=== PATIENT | female | born 1960 | race Hispanic/Latino ===

== ENCOUNTER → 2023-02-04 | Outpatient (CLI) | payer OTHER ==
[2023-02-04 13:22] LABS: ALBUMIN 3.3 g/dL (3.5-5.0); BILIRUBIN,TOTAL 0.3 mg/dL (0.2-1.0); POTASSIUM 4.2 mmol/L (3.5-5.1); TOTAL PROTEIN, SERUM 8.1 g/dL (6.0-8.3)
== END | disposition home or self-care (01) ==
LOC: LAB 12:14
PROVIDERS: ATTEND Internal Medicine Cardiovascular Disease
DX: R07.9 Chest pain, unspecified (principal)
CPT/HCPCS: 36415; 80053

== ENCOUNTER → 2023-02-26 | Outpatient (CLI) | payer OTHER ==
[~2023-02-26] MED LIST: IOHEXOL 350 MG/ML 100ML INFUS..BTL IV ONE; METOPROLOL TARTRATE 1 MG/ML 5ML VIAL IV ONE
== END | disposition home or self-care (01) ==
LOC: RAH 10:43
PROVIDERS: ATTEND Internal Medicine Cardiovascular Disease
DX: R07.9 Chest pain, unspecified (principal); R00.2 Palpitations
CPT/HCPCS: 75574; Q9967; J3490

== ENCOUNTER 2024-07-10 14:03 | Emergency (ER) | payer BC, OTHER ==
[~2024-07-10] VITALS: Ht 160 cm; Wt 83.5 kg
--- NOTE | 2024-07-10 14:47 | EKG ---
[facility] Test Date: 2024-07-10 Test Time: 14:45:54 Pat Name: BENIGNO YEAGER Department: 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
--- NOTE | 2024-07-10 14:53 | HMCIMG ---
LEFT SHOULDER RADIOGRAPHS - 2-3 VIEWS INDICATION: Pain COMPARISON: None FINDINGS: No evidence for acute fracture or dislocation. Acromioclavicular and glenohumeral alignments are well maintained. Visible portions of the left clavicle are intact. Chronic subcentimeter calcification near the tip of the acromion. IMPRESSION: No evidence for fracture or dislocation.
[2024-07-10 15:02] VITALS: BP 152/91; PULSE 72; RESP 16; TEMP 98.3; O2SAT 98
--- NOTE | 2024-07-10 15:07 | ERN ---
General Chief Complaint: Upper Extremity Pain/Injury Stated Complaint: ARM PAIN Time Seen by MD: 14:05 Source: patient History of Present Illness Initial Comments In his is a 63-year-old female coming in to be evaluated for left shoulder pain. Per patient shoulder pain began couple of days ago after waking up. She states that she has been very active physically. Allergies: Coded Allergies: iodine (Unverified Allergy, Unknown, 07/10/24) Past Medical History Past Medical History: Diabetes-Type II, Hypertension Past Surgical History: Hysterectomy Surgical History Other: TUBAL LIGATION ROS Dictation CONSTITUTIONAL: No chills, no fever, no weakness, no diaphoresis, no malaise. HEAD/FACE: No signs of trauma. EENT: No eye pain, no blurred vision, no tearing, no double vision, no ear pain, no ear discharge, no nose pain, no nasal congestion, no throat pain, no throat swelling, no mouth pain. RESPIRATORY: No cough, no orthopnea, no SOB, no stridor, no wheezing. CARDIOVASCULAR: No chest pain, no edema, no palpitations, no syncope. GASTROINTESTINAL/ABDOMINAL: No abdominal pain, no constipation, no diarrhea, no nausea, no vomiting. GENITOURINARY: No abnormal discharge, no dysuria, no frequent urination, no hematuria. No complaints of pain in the genitals. MUSCULOSKELETAL: No back pain, no gout, no joint pain, no joint swelling, muscle pain, no muscle stiffness, no neck pain. INTEGUMENTARY: No change in color, no change in hair/nails, no dryness, no lesion, no lumps, no rash. NEUROLOGICAL/PSYCH: No anxiety, not depressed, no emotional problem, no headache, no numbness, no pre-existing deficit, no history of seizures, no tremors, no weakness. HEMATOLOGIC/LYMPHATIC: Not anemic, no history of blood clots, no apparent bleeding, no bruising, glands not swollen. All Systems Negative, Except as Noted. Physical Exam Physical Exam Dictation VITAL SIGNS: Reviewed. GENERAL APPEARANCE: Alert, oriented x3, no acute distress, obese. HEAD AND FACE: Non-traumatic. EYES: PERRL, pink conjunctivas, eyelid no trauma, anterior chamber clear. EARS: Pinnas intact and no signs of trauma or erythema. Ear canals clear and no discharge. TMs no erythema. NOSE: No discharge, no bleeding. OROPHARYNX: Mouth normal, teeth no caries, tongue pink. Pharynx clear, no erythema. Tonsils no exudates, no abscesses noted. Mucous membrane moist. NECK: Supple, non-tender, no thyromegaly, no masses, no JVD, no bruits. BREAST: Deferred. CHEST: No tenderness, no crepitus, no paradoxical movement, no retractions. LUNGS: Clear, well-ventilated, symmetric, no rales, no wheezing, no rhonchi, no stridor, good breath sounds bilaterally. HEART: Regular rate, regular rhythm, no murmur, no gallops. VASCULAR: No peripheral edema. ABDOMEN: Soft, positive bowel sounds, nondistended, no guarding, nontender, no rebound, no masses no hepatomegaly, no splenomegaly, no Lewis's sign, no hernias. RECTAL: Deferred. GENITAL: Deferred. NEUROLOGICAL: Normal speech, gross motor function intact, gross sensory function intact. MUSCULOSKELETAL: Neck nontender, full range of motion, back nontender, full range of motion. EXTREMITIES: Nontender, full range of motion. Left shoulder pain on palpation, pain on adduction, and abduction SKIN: Color pink, dry, no turgor, no rash, no lacerations, no abrasions, no contusions. LYMPHATICS: Deferred. Results Laboratory and Microbiology Labs Reviewed?: Yes EKG/XRAY/US/CT/MRI EKG Comment 07/10/2024 time 2:45 p.m. Ventricular rate 83 Sinus rhythm [place] [address] wave elevation or depression X-RAY Comment [place] [id number] [address] IMAGING REPORT Signed PATIENT: BENIGNO YEAGER MR#: [id number] : 1960 SEX: F AGE: 63 LOCATION: [facility] ORDER 141 STATUS: REG ER REPORT#: [id number] SERVICE [id number] REASON: PAIN ORDERING PHYSICIAN: BENIGNO BAEZA MD PROCEDURE: SHOL 2V LT - SHOULDER COMP 2+VWS LT LEFT SHOULDER RADIOGRAPHS - 2-3 VIEWS INDICATION: Pain COMPARISON: None FINDINGS: No evidence for acute fracture or dislocation. Acromioclavicular and glenohumeral alignments are well maintained. Visible portions of the left clavicle are intact. Chronic subcentimeter calcification near the tip of the acromion. IMPRESSION: No evidence for fracture or dislocation. DICTATED BY: IGGY CHEEMA MD DATE: 07/10/24 145 ELECTRONICALLY SIGNED BY: IGGY CHEEMA MD DATE: 07/10/[address] [facility] MDM: Differential diagnosis: Left shoulder strain, muscle strain, Patient is a 63-year-old female coming in to be evaluated for left shoulder strain. X-ray did not disclose acute findings EKG was performed with the proximity of the discomfort. Patient's arm was placed in his sling medications for symptomatic relief. Patient will be discharged in stable condition I advised her appropriate follow up with PCP in 1-2 days. ED Course Orders Procedure Category Date Status Time Orphenadrine Citrate PHA 07/10/24 Complete (Norflex) 14:30 Shoulder Comp 2+Vws Lt RAD 07/10/24 Resulted 14:11 12 Lead Ekg Tracing- EKG 07/10/24 Resulted Technical 14:11 Sling ANNELIESE 07/10/24 In Process 14:11 Tramadol Hcl (Ultram) PHA 07/10/24 Complete 16:30 Current Medications Medications (Trade) Dose Ordered Sig/Lawrence Route PRN Reason Start Time Stop Time Status Last Admin Dose Admin Orphenadrine Citrate (Norflex) 60 mg ONCE ONCE IM 07/10/24 14:30 07/10/24 14:53 DC 07/10/24 15:48 Tramadol HCl (UltRAM) 50 mg ONCE ONCE PO 07/10/24 16:30 07/10/24 16:34 DC Vital Signs Date Time Temp Pulse Resp B/P (MAP) Pulse Ox O2 Delivery O2 Flow Rate FiO2 07/10/24 15:02 98.2 72 16 152/91 98 Room Air* 0 21 07/10/24 14:50 98.2 72 16 152/91 98 Room Air 0 DX & DISP Disposition: Discharge Departure Impression: Primary Impression: Left shoulder strain Condition: Stable Scripts Naproxen (Naproxen) 500 Mg Tablet 1 TAB PO BID for pain for 7 Days, #14 TAB 0 Refills Prov: BENIGNO BAEZA MD 3/30/25 Methocarbamol (Robaxin) 750 Mg Tab 1 TAB PO BID for 7 Days, #14 TAB 0 Refills Prov: BENIGNO BAEZA MD 07/10/24 Additional Instructions: FOLLOW-UP WITH PRIMARY CARE PROVIDER IN 1 TO 2 DAYS. TAKE MEDICATIONS DIRECTED HERE IN THE EMERGENCY ROOM. OKAY TO CONTINUE HOME MEDICATIONS UNLESS OTHERWISE DISCUSSED DURING YOUR VISIT IN THE EMERGENCY ROOM TODAY. RETURN TO YOUR NEAREST EMERGENCY ROOM IF SYMPTOMS WORSEN OR IF THERE IS NO IMPROVEMENT. CALL 911 IF YOU NEED IMMEDIATE ASSISTANCE. TAKE TYLENOL [id number] NEEDED AND IF NO CONTRAINDICATIONS ARE PRESENT. INCREASE ORAL HYDRATION. A WOUND CULTURE OR URINE CULTURE WAS ORDERED HERE IN THE EMERGENCY ROOM DEPARTMENT PLEASE FOLLOW-UP WITH PRIMARY CARE PROVIDER AND ADVISE THEM TO GET REPEAT PORTS FROM OUR FACILITY. IF YOU HAD ANY SLIM WRAP/SPLINTS THAT WERE APPLIED HERE, PLEASE DO NOT REMOVE THEM UNTIL YOU SEE YOUR PRIMARY CARE OR SPECIALTY. Referrals: Referrals: MARK BAILEY MD (PCP) Time of Disposition: 17:04 BENIGNO BAEZA MD Jul 10, 2024 15:07
[2024-07-10] MEDS: ORPHENADRINE 60MG/2ML IM ONE (15:48)
[2024-07-10] MEDS ORDERED: NAPR-1194 PO (17:05)
[2024-07-10] MEDS: traMADol HCL 50 MG TABLET PO ONE (17:05)
[2024-07-10] MEDS ORDERED: METH-662 PO (17:05)
== END 2024-07-10 17:26 | disposition home or self-care (01) ==
LOC: EDH 14:03
DX: S46.912A Strain of unspecified muscle, fascia and tendon at shoulder and upper arm level, left arm, initial encounter (principal); E11.9 Type 2 diabetes mellitus without complications; I10 Essential (primary) hypertension; Z88.8 Allergy status to other drugs, medicaments and biological substances; Z90.710 Acquired absence of both cervix and uterus; Z91.041 Radiographic dye allergy status; X58.XXXA Exposure to other specified factors, initial encounter; Y93.89 Activity, other specified; Y92.89 Other specified places as the place of occurrence of the external cause; Y99.8 Other external cause status
CPT/HCPCS: 73030; 93005; 96372; 99284; J2360

== ENCOUNTER 2025-01-27 19:54 | Emergency (ER) | payer BC, MEDICARE ==
[~2025-01-27] VITALS: Ht 157.5 cm; Wt 82.1 kg
[~2025-01-27 19:54] MED LIST changes: -IOHEXOL 350 MG/ML 100ML INFUS..BTL IV ONE; +METH-662 PO; -METOPROLOL TARTRATE 1 MG/ML 5ML VIAL IV ONE; +NAPR-1194 PO
--- NOTE | 2025-01-27 20:16 | ERN ---
ED Note History of Present Illness Stated Complaint: ABD PAIN, NAUSEA Chief Complaint: Abdominal Pain Time Seen by MD: 19:58 Dictation: IN HIS A 64-YEAR-OLD FEMALE HERE TODAY WITH COMPLAINTS OF RIGHT UPPER QUADRANT PAIN WITH NAUSEA VOMITING ONSET FOR THE LAST 2-3 DAYS. NO FEVER NO CHILLS NO CHEST PAIN NO BACK PAIN NO SOB. SHE SAW HER PRIMARY CARE DOCTOR TODAY, DR. MARK BAILEY [facility] AND WAS SENT TO THE [facility], [place] WHERE SHE HAD LABS URINALYSIS AND AN ULTRASOUND DONE. SHE STATES THEY TOLD HER THE RESULTS WE WILL BE IN THE NEXT FEW DAYS AND SENT HER OUT AFTER GIVING HER A SHOT. HE IS HERE FOR DEFINITIVE TREATMENT AND CARE Allergies: Coded Allergies: iodine (Unverified Allergy, Unknown, 07/10/24) Home Meds Active Scripts Naproxen (Naproxen) 500 Mg Tablet, 1 TAB PO BID for pain for 7 Days, #14 TAB 0 Refills Prov:BENIGNO BAEZA MD 07/10/24 Methocarbamol (Robaxin) 750 Mg Tab, 1 TAB PO BID for 7 Days, #14 TAB 0 Refills Prov:BENIGNO BAEZA MD 07/10/24 Past Medical History Past Medical History: Diabetes-Type II, High Cholesterol, Hypertension Surgical History: Hysterectomy Surgical History Other: TUBAL LIGATION History: Not Applicable RN Note Reviewed/Agreed w/PFSH: Yes Review of System Dictation CONSTITUTIONAL: NEGATIVE EXCEPT FOR HPI HEAD/FACE: NEGATIVE EXCEPT FOR HPI EENT: NEGATIVE EXCEPT FOR HPI RESPIRATORY: NEGATIVE EXCEPT FOR HPI GASTROINTESTINAL/ABDOMINAL: NEGATIVE EXCEPT FOR HPI UPPER QUADRANT PAIN NAUSEA GENITOURINARY: NEGATIVE EXCEPT FOR HPI MUSCULOSKELETAL: NEGATIVE EXCEPT FOR HPI INTEGUMENTARY: NEGATIVE EXCEPT FOR HPI NEUROLOGICAL/PSYCH: NEGATIVE EXCEPT FOR HPI HEMATOLOGIC/LYMPHATIC: NEGATIVE EXCEPT FOR HPI ALL SYSTEMS NEGATIVE, EXCEPT NOTED ABOVE. 13 POINT REVIEW OF SYSTEMS ASSESSED AND ALL NEGATIVE EXCEPT FOR ABOVE. Initial Vital Sign VS Vital Signs Date Time Temp Pulse Resp B/P (MAP) Pulse Ox O2 Delivery O2 Flow Rate FiO2 01/27/25 19:58 97.9 64 20 137/73 96 Room Air 0 Physical Exam Dictation VITAL SIGNS REVIEWED GENERAL APPEARANCE: ALERT, ORIENTED X 3, MODERATE ACUTE DISTRESS, WELL DEVELOPED, NOURISHED. MORBID OBESITY HEAD AND FACE: NON-TRAUMATIC. EYES: PERRL, PINK CONJUNCTIVAS, EYELID NO TRAUMA, ANTERIOR CHAMBER WITH ARCUS SENILIS. EARS: PINNAS INTACT AND NO SIGNS OF TRAUMA OR ERYTHEMA EAR CANALS CLEAR AND NO DISCHARGE TM NO ERYTHEMA NOSE: NO DISCHARGE, NO BLEEDING. OROPHARYNX: MOUTH NORMAL, TONGUE PINK, PHARYNX CLEAR,NO ERYTHEMA, TONSILS NO EXUDATES, NO ABSCESSES NOTED, MUCOUS MEMBRANE MOIST NECK: SUPPLE, NON-TENDER, NO THYROMEGALY, NO MASSES, NO JVD, NO BRUITS BREAST:DEFERRED CHEST:NO TENDERNESS, NO CREPITUS, NO PARADOXICAL MOVEMENT, NO RETRACTIONS LUNGS:CLEAR, WELL-VENTILATED, SYMMETRIC, NO RALES, NO WHEEZING, NO RHONCHI, NO STRIDOR, GOOD BREATH SOUNDS BILATERALLY HEART: REGULAR RATE, REGULAR RHYTHM, NO MURMUR, NO GALLOPS VASCULAR: NO PERIPHERAL EDEMA, ABDOMEN: SOFT, POSITIVE BOWEL SOUNDS, NONDISTENDED, NO GUARDING, RIGHT UPPER QUADRANT PAIN WITH POSITIVE DONIS'S SIGN. RECTAL: DEFERRED GENITAL: DEFERRED NEUROLOGICAL: NORMAL SPEECH, MOTOR FUNCTION INTACT, SENSORY FUNCTION INTACT MUSCULOSKELETAL: NECK NONTENDER, FULL RANGE OF MOTION, BACK NONTENDER, FULL RANGE OF MOTION, EXTREMITIES: NONTENDER, FULL RANGE OF MOTION SKIN: COLOR PINK, DRY, NO TURGOR, NO RASH, NO LACERATIONS, NO ABRASIONS, NO CONTUSIONS. LYMPHATIC: DEFERRED Results (Laboratory/Radiology) Laboratory/Radiology Laboratory Tests Test 01/27/25 21:01 White Blood Count 6.8 K/uL (4.8-10.8) Red Blood Count 3.96 MIL/uL (4.00-5.50) L Hemoglobin 12.4 g/dL (12.0-16.0) Hematocrit 38.0 % (36-48) Mean Corpuscular Volume 96.0 fL (79-99) Mean Corpuscular Hemoglobin 31.3 pg (27.0-33.0) Mean Corpuscular Hemoglobin Concent 32.6 g/dL (32.0-36.0) Red Cell Distribution Width 14.4 % (11.0-15.5) Platelet Count 147 K/uL (130-400) Mean Platelet Volume 10.8 fL (7.5-10.5) H Immature Granulocyte % (Auto) 0.3 % (0-1) Neutrophils (%) (Auto) 58.4 % (40.0-77.0) Lymphocytes (%) (Auto) 26.0 % (21.0-51.0) Monocytes (%) (Auto) 7.3 % (3.0-13.0) Eosinophils (%) (Auto) 7.6 % (0.0-8.0) Basophils (%) (Auto) 0.4 % (0.0-5.0) Neutrophils # (Auto) 4.0 K/uL (1.8-7.7) Lymphocytes # (Auto) 1.8 K/uL (1.0-4.8) Monocytes # (Auto) 0.5 K/uL (0.1-1.0) Eosinophils # (Auto) 0.52 K/uL (0.00-0.70) Basophils # (Auto) 0.03 K/uL (0.00-0.20) Absolute Immature Granulocyte (auto 0.02 K/uL (0-1) Nucleated Red Blood Cells 0.0 % (0.0-0.19) Sodium Level 143 mmol/L (136-145) Potassium Level 4.0 mmol/L (3.5-5.1) Chloride Level 103 mmol/L (101-111) Carbon Dioxide Level 31 mmol/L (21-32) Blood Urea Nitrogen 15 mg/dL (7-18) Creatinine 0.8 mg/dL (0.5-1.0) Glomerular Filtration Rate Calc 82 mL/min (>90) Random Glucose 103 mg/dL (70-105) Total Calcium 8.8 mg/dL (8.5-10.1) Total Bilirubin 0.4 mg/dL (0.2-1.0) Aspartate Amino Transf (AST/SGOT) 35 U/L (10-37) Alanine Aminotransferase (ALT/SGPT) 31 U/L (12-78) Alkaline Phosphatase 70 U/L (50-136) Total Protein 7.7 g/dL (6.0-8.3) Albumin 3.5 g/dL (3.5-5.0) Lipase 27 U/L (16-77) 2155/RIGHT UPPER QUADRANT ULTRASOUND NEGATIVE NO GLAD BLADDER WALL THICKENING NO STONES COMMON BILE DUCT NORMAL NO HEPATO STEATOSIS Labs Reviewed?: Yes ED Course ED Course Orders Procedure Category Date Status Time Cbc With Differential LAB 01/27/25 Complete 20:13 Comprehensive LAB 01/27/25 Complete Metabolic Panel 20:13 Us Abdominal Ruq\Ltd US 01/27/25 Taken 20:13 0.9%Nacl 1000ml (Ns PHA 01/27/25 Complete 1000ml) 20:30 Ketorolac PHA 01/27/25 Complete Tromethamine 30mg/Ml 20:30 Lipase LAB 01/27/25 Complete 20:13 Current Medications Medications (Trade) Dose Ordered Sig/Lawrence Route PRN Reason Start Time Stop Time Status Last Admin Dose Admin Ketorolac Tromethamine (toRADol) 30 mg ONCE ONCE IVP 01/27/25 20:30 01/27/25 20:31 DC 01/27/25 21:52 Sodium Chloride 1,000 ml @ 0 mls/hr ONCE ONCE IV 01/27/25 20:30 01/27/25 20:31 DC 01/27/25 21:49 Vital Signs Date Time Temp Pulse Resp B/P (MAP) Pulse Ox O2 Delivery O2 Flow Rate FiO2 01/27/25 19:58 97.9 64 20 137/73 96 Room Air 0 2155/PATIENT DISCHARGED HOME WITH BILIARY COLIC SYMPTOMS. GIVEN BENTYL INFORMATION ON LOW-FAT DIET SEE HER DOCTOR NEXT WEEK Medical Decision Making MDM MDM: DIFFERENTIAL DIAGNOSIS: CHOLELITHIASIS/CHOLEDOCHOLITHIASIS/BILIARY COLIC/PANCREATITIS/ELECTROLYTE IMBALANCE/DEHYDRATION SAID SHE TI RATIONALE: TESTS CONSIDERED AND ORDERED SECONDARY TO SHARED DECISION MAKING INCLUDE: LABS/RADIOLOGY PREVIOUS OUTSIDE RECORDS REVIEWED: OLD ER VISITS. RISK OF COMPLICATION AND/OR MORBIDITY OR MORTALITY OF PATIENT MANAGEMENT: NONE MEDICATIONS-PER MEDICATION RECONCILIATION NEED FOR HOSPITALIZATION: PATIENT DOES NOT MEET CRITERIA FOR HOSPITALIZATION. NONE NEED FOR EMERGENCY MAJOR/MINOR SURGERY: NO THERE ARE NO SOCIAL CONCERNS WITH THIS PATIENT. PRESCRIPTION DRUG MANAGEMENT BENTYL PRESCRIPTIONS WILL INCLUDE SYMPTOMATIC CARE PATIENT'S PRIOR EXTERNAL MEDICAL RECORDS FROM OTHER ER VISITS WERE REVIEWED BY ME INDICATED. PRIOR TESTING AND RESULTS FROM PREVIOUS VISITS WERE REVIEWED. PRIOR TESTS WERE TAKEN INTO ACCOUNT WITH MEDICAL DECISION MAKING AND RESOURCE U TILIZATION, INDEPENDENT HISTORIAN/HISTORIANS WERE USED TO OBTAIN COMPLETE MEDICAL HISTORY. I INDEPENDENTLY INTERPRETED THE TEST THAT WERE PERFORMED, RESULTS WERE REVIEWED BY ME AND CONSIDERED FINDINGS ON RADIOLOGY IF ORDERED. MEDICAL MANAGEMENT AND EXAMINATION INTERPRETATION DISCUSSIONS WERE HAD BY ME WITH OTHER QUALIFIED HEALTHCARE PROFESSIONALS INDICATED FOR THE PATIENT'S CA RE. DX & DISP Disposition: Discharge Departure Impression: Primary Impression: Biliary colic symptom Additional Impression: Nausea Condition: Stable Scripts Ondansetron (Ondansetron Odt) 4 Mg Tab.rapdis 4 MG PO Q6HPRN PRN for nausea, #16 TAB 0 Refills Prov: JACKIE JONES 01/27/25 Dicyclomine HCl (Bentyl) 20 Mg Tab 20 MG PO Q6HPRN PRN for ABDOMINAL PAIN /CRAMPS, #30 TAB Prov: JACKIE JONES 01/27/25 Additional Instructions: FOLLOW-UP WITH PRIMARY CARE PROVIDER IN 1 TO 2 DAYS. TAKE MEDICATIONS DIRECTED HERE IN THE EMERGENCY ROOM. OKAY TO CONTINUE HOME MEDICATIONS UNLESS OTHERWISE DISCUSSED DURING YOUR VISIT IN THE EMERGENCY ROOM TODAY. RETURN TO YOUR NEAREST EMERGENCY ROOM IF SYMPTOMS WORSEN OR IF THERE IS NO IMPROVEMENT. CALL 911 IF YOU NEED IMMEDIATE ASSISTANCE. TAKE TYLENOL OR MOTRIN O [id number] NEEDED AND IF NO CONTRAINDICATIONS ARE PRESENT. INCREASE ORAL HYDRATION. A WOUND CULTURE OR URINE CULTURE WAS ORDERED HERE IN THE EMERGENCY ROOM DEPARTMENT PLEASE FOLLOW-UP WITH PRIMARY CARE PROVIDER AND ADVISE THEM TO GET REPEAT PORTS FROM OUR FACILITY. IF YOU HAD ANY SLIM WRAP/SPLINTS THAT WERE APPLIED HERE, PLEASE DO NOT REMOVE THEM UNTIL YOU SEE YOUR PRIMARY CARE OR SPECIALTY. FOLLOW A LOW-FAT DIET. INCREASE YOUR WATER INTAKE. TAKE BENTYL DIRECTED FOR ABDOMINAL PAIN. SEE YOUR PRIMARY CARE DOCTOR, NEXT THURSDAY FOR FOLLOW UP Referrals: MARK BAILEY MD (PCP) Time of Disposition: 21:57 I have reviewed the case, and I agree with, Diagnosis and Plan JACKIE JONES Jan 27, 2025 20:16
[2025-01-27 21:09] LABS: IMMATURE GRANULOCYTE ABSOLUTE 0.02 K/uL (0-1); NUCLEATED RED BLOOD CELLS 0.0 % (0.0-0.19); PLATELET COUNT (AUTO) 147 K/uL (130-400); RED BLOOD CELL COUNT(AUTO) 3.96 MIL/uL (4.00-5.50); RED CELL DISTRIBUTION WIDTH 14.4 % (11.0-15.5); WHITE BLOOD COUNT (AUTO) 6.8 K/uL (4.8-10.8)
[2025-01-27 21:27] LABS: CREATININE 0.8 mg/dL (0.5-1.0); GLOMERULAR FILTR. RATE CALC 82.0 mL/min (>90); GLUCOSE,RANDOM 103.0 mg/dL (70-105); SODIUM SERUM 143.0 mmol/L (136-145); UREA NITROGEN, BLOOD 15.0 mg/dL (7-18)
[2025-01-27 21:31] LABS: ASPARTATE AMINOTRANSFERASE 35.0 U/L (10-37); TOTAL PROTEIN, SERUM 7.7 g/dL (6.0-8.3)
--- NOTE | 2025-01-27 21:48 | NUR ---
ASSUMED PT CARE
[2025-01-27] MEDS: 0.9%NACL 1000ML 1,000 ML IV ONE (21:49)
[2025-01-27] MEDS ORDERED: DICY20TA2 PO (21:58)
[2025-01-27] MEDS ORDERED: ONDA-243 PO (21:58)
[2025-01-27 22:04] VITALS: BP 130/65; PULSE 78; RESP 18; TEMP 98.5; O2SAT 99
--- NOTE | 2025-01-27 22:21 | NUR ---
WAITNG TO FINISH IV PRIOR DC
--- NOTE | 2025-01-27 23:01 | HMCIMG ---
EXAM: ULTRASOUND OF THE ABDOMEN (LIMITED) WITH COLOR DOPPLER. CLINICAL HISTORY: Pain. COMPARISON: None. TECHNIQUE: Real-time grayscale ultrasound images of the abdomen. In addition, color Doppler is medically necessary to perform in order to evaluate vascularity and blood flow. FINDINGS: Liver: Normal in caliber, the right hepatic lobe measures 15.0 cm in the craniocaudal dimension. There is increased echogenicity of the hepatic parenchyma. There is no focal hepatic abnormality or intrahepatic biliary ductal dilatation. There is a normal spectral Doppler of the main portal vein. Gallbladder: Within normal limits with normal wall thickness (0.19 cm). No hyperemia or pericholecystic free fluid. There is no cholelithiasis. The common bile duct is normal in caliber, measuring 0.49 cm. Pancreas: Head and body are normal in caliber and echotexture. No calcification or dilated pancreatic duct. The tail is obscured by overlying bowel gas. The right kidney is normal in size and it measures 10.8 x 4.4 x 4.9 cm in its craniocaudal, AP, and transverse dimensions, respectively. There is normal renal cortical thickness and cortical echogenicity. There is no renal calculus or hydronephrosis. IMPRESSION: Hepatic steatosis. /[place]
== END 2025-01-27 23:00 | disposition home or self-care (01) ==
LOC: EDH 19:54
DX: K80.50 Calculus of bile duct without cholangitis or cholecystitis without obstruction (principal); R11.0 Nausea; E11.9 Type 2 diabetes mellitus without complications; E78.00 Pure hypercholesterolemia, unspecified; I10 Essential (primary) hypertension; Z90.710 Acquired absence of both cervix and uterus; Z88.8 Allergy status to other drugs, medicaments and biological substances; Z91.041 Radiographic dye allergy status
CPT/HCPCS: 99284; 96374; 76705; 96361; 80053; 83690; 85025; 36415; J1885; J7030